=== PATIENT | male | born 1955 | race Caucasian/White ===

== ENCOUNTER 2025-01-03 07:54 | Emergency (ER) | payer MEDICARE, SELFPAY ==
[2025-01-03] VITALS (11 sets, daily range): BP systolic 139–191; BP diastolic 84–95; PULSE 58–72; RESP 13–23; TEMP 37; O2SAT 94–100; BMI 28.7
--- NOTE | 2025-01-03 07:52 | DI.RAD.S_ITS ---
PROCEDURE: XR CHEST 1V INDICATIONS: Chest Pain TECHNIQUE: One view of the chest was acquired. COMPARISON: None. FINDINGS: Surgical changes and devices: None. Lungs and pleura: Lungs are clear. No pleural effusions or pneumothorax. Mediastinum: Mediastinal contours appear normal. Heart size is normal. Bones and chest wall: No suspicious bony lesions. Overlying soft tissues appear unremarkable. IMPRESSION: No acute cardiopulmonary abnormality is seen. Approved by: Demian Perez M.D. on 01/03/2025 at 8:24
--- NOTE | 2025-01-03 07:52 | EKG_ITS ---
[address] [address] Test Date: 2025-01-03 Pat Name: Lili Gardiner Department: Room: Gender: Male [employer]: NORMA : 1955 Requested By: Order Number: [id number] Reading MD: Luis Berg Measurements Intervals [place] Rate: 69 P: 39 SD: 150 QRS: 0 QRSD: 84 T: 7 QT: 414 QTc: 443 Interpretive Statements Normal sinus rhythm Electronically Signed On 01-04-2025 17:29:34 PDT by Luis Berg
--- NOTE | 2025-01-03 07:56 | ED.CHESTPAIN ---
HPI - Chest Pain General Chief Complaint: Chest Pain Stated Complaint: Chest pain Time Seen by Provider: 01/03/25 07:55 History of Present Illness HPI narrative: 69-year-old male no significant past medical history presenting from the [place] via EMS for evaluation of chest pain, he states that it was a pressure started spontaneously a proximally 1 hour ago no longer having that pressure, he states there was no radiation states he was just sitting on the [place], he states that he did feel slightly clammy when this happened lasted for a few seconds. He denies any other symptoms such as headache visual disturbances shortness of breath fever chills nausea vomiting abdominal pain or any other GI/ symptoms time. Related Data Allergies Allergy/AdvReac Type Severity Reaction Status Date / Time No Known Drug Allergies Allergy Verified 01/03/25 07:56 Review of Systems Review of Systems Narrative: General: Denies fever, chills, weight loss HEENT: Denies headache, eye drainage, eye irritation, head trauma, sore throat, voice change Cardiovascular: Positive chest pain, denies palpitations, tachycardia Respiratory: Denies any shortness of breath, cough, wheeze, stridor GI/: Denies any abdominal pain, nausea, vomiting, diarrhea, bright red blood per rectum, melanotic stools, urinary frequency, urinary retention, dysuria, hematuria MSK: Denies any joint pain, muscle pains, swelling Skin: Denies any rashes, lesions, discoloration Neuro: Denies any headache, lightheadedness, dizziness, fainting, weakness Psych: Denies SI/HI Patient History Social History Smoking Status: Former smoker Exam Narrative Exam Narrative: General: Cooperative, well-developed, not in acute distress HEENT: Normocephalic, atraumatic, PERRLA, normal sclera, eyelids normal Neck: Active full range of motion, atraumatic Chest: Normal to inspection, negative crepitus, no overlying erythema ecchymosis Respiratory: Normal respiratory effort, not in acute respiratory distress, clear to auscultation bilaterally negative cough, wheeze, tachypnea, rhonchi, rales Cardiology: Regular rate rhythm negative gallop, murmur, rubs GI/: No tenderness to palpation, soft, non rigid, normal to inspection, exam deferred MSK: Full active range of motion in all 4 extremities, atraumatic, no tenderness to palpation of any bony prominences Skin: No rashes or lesions noted Neuro: Alert awake oriented x3, moves all 4 extremities spontaneously, cranial nerves intact, able to answer all questions appropriately follows commands appropriately Psych: Cooperative, negative suicidal or homicidal ideations Initial Vital Signs Initial Vital Signs: Vital Signs Temperature 98.6 F 01/03/25 07:52 Pulse Rate 72 01/03/25 07:52 Respiratory Rate 20 01/03/25 07:52 Blood Pressure 164/92 H 01/03/25 07:52 Pulse Oximetry 100 01/03/25 07:52 Oxygen Delivery Method Room Air 01/03/25 07:52 Course Orders Ordered: ED Orders 01/03/25 07:52 XR chest 1V Stat EKG-12 Lead Stat 01/03/25 07:53 Complete Blood Count AUTO DIFF Stat Comprehensive Metabolic Panel Stat Lipase Stat Magnesium Stat NT-proBNP (BNP-Adult 18+) Stat PTT Partial Thromboplastin [place] Stat Prothrombin Time INR Stat Troponin & CK Cardiac Panel Stat 01/03/25 10:00 Trop I [Troponin I] Stat Discontinued Medications Acetaminophen (Acetaminophen 325 Mg Tablet) 650 mg PO NOW ONE Stop: 01/03/25 08:00 Last Admin: 01/03/25 08:14 Dose: 650 mg Documented By: SHELTON Aspirin (Aspirin 81 Mg Chew Tab) 324 mg PO NOW ONE Stop: 01/03/25 07:51 Last Admin: 01/03/25 08:01 Dose: Not Given Documented By: CHELA Vital Signs Vital signs: Vital Signs - 8 hr 01/03/25 07:52 01/03/25 07:57 01/03/25 07:58 Temperature 98.6 F Pulse Rate 72 65 Respiratory Rate 20 17 Blood Pressure 164/92 H 158/87 H Pulse Oximetry 100 96 Oxygen Delivery Method Room Air 01/03/25 07:58 01/03/25 08:00 01/03/25 08:00 Temperature Pulse Rate 65 65 Respiratory Rate 13 14 Blood Pressure 150/88 H Pulse Oximetry 95 95 Oxygen Delivery Method 01/03/25 08:30 01/03/25 08:30 01/03/25 09:00 Temperature Pulse Rate 63 64 Respiratory Rate 14 23 Blood Pressure 146/84 H Pulse Oximetry 95 97 Oxygen Delivery Method 01/03/25 09:13 01/03/25 09:13 06/04/25 09:30 Temperature Pulse Rate 67 Respiratory Rate 17 Blood Pressure 191/93 H 162/95 H Pulse Oximetry 99 Oxygen Delivery Method Room Air 01/03/25 09:30 01/03/25 10:00 01/03/25 10:00 Temperature Pulse Rate 65 68 61 Respiratory Rate 20 16 19 Blood Pressure 145/90 H Pulse Oximetry 99 94 97 Oxygen Delivery Method Room Air MDM - Chest Pain Differential Diagnosis Differential diagnosis: Likely stable angina, unstable angina pectoris, atypical chest pain, st elevation myocardial infarction, costochondritis, chest pain and other (Electrolyte abnormality, pneumonia) Lab Data 01/03/25 07:53 01/03/25 07:53 Labs: Lab Results 01/03/25 01/03/25 Range/Units 07:53 10:00 WBC 6.5 (4.5-11.0) X10^3/uL RBC 4.87 (4.5-5.9) X10^6/uL Hgb 14.3 (13.5-17.5) g/dL Hct 42.8 (41-53) % MCV 88.0 (80-100) fL MCH 29.4 (26-34) PG MCHC 33.4 (30-36) % RDW 13.6 (11.6-14.8) % Plt Count 275 (150-400) X10^3/uL Neut % (Auto) 51.5 (50-75) % Lymph % (Auto) 36.6 (25-40) % [place] % (Auto) 8.8 (3-14) % Eos % (Auto) 2.3 (2-4) % Baso % (Auto) 0.8 (0-2) % Neut # (Auto) 3300 (2379-9045) /uL Lymph # (Auto) 2400 (0280-2769) /uL [place] # (Auto) 600 (0-900) /uL Eos # (Auto) 200 (0-450) /uL Baso # (Auto) 100 (0-100) /uL PT 10.3 (9.4-12.5) SECONDS INR 0.9 (0.9-1.3) APTT 37 H (25.1-36.5) SECONDS Sodium 138 (137-145) mmol/L Potassium 4.2 (3.4-5.1) mmol/L Chloride 106 (98-107) mmol/L Carbon Dioxide 24 (22-32) mmol/L BUN 16 (9-20) mg/dL Creatinine 0.70 (0.66-1.25) mg/dL Estimated GFR > 60 (>60) mL/min BUN/Creatinine Ratio 22.9 H (6-22) Glucose 116 H (70-99) mg/dL Calcium 10.2 (8.4-10.2) mg/dL Magnesium 2.0 (1.6-2.3) mg/dL Total Bilirubin 0.5 (0.2-1.3) mg/dL AST 38 (17-59) IU/L ALT 36 (<50) IU/L Alkaline Phosphatase 104 (38-126) U/L Total Creatine Kinase 260 H (55-170) U/L Troponin I < 0.012 < 0.012 (0.01-0.034) ng/mL NT-Pro-B Natriuret Pep < 20 (<125) pg/mL Total Protein 7.2 (6.3-8.2) g/dL Albumin 4.4 (3.5-5.0) g/dL Globulin 2.8 (1.7-4.1) g/dL Albumin/Globulin Ratio 1.6 (1.0-2.8) Lipase 116 (23-300) U/L Imaging Data Chest x-ray: Radiologist's Impression: [place] [address] XRay Report Signed Patient: Lili Gardiner MR#: [id number] : 1955 Acct:[id number] Age/Sex: 69 / M Date of Service: 01/03/25 Loc: ED Accession Number: [id number] Procedure: XR chest 1V Ordering Provider: Solitario Elias D.O. PROCEDURE: XR CHEST 1V INDICATIONS: Chest Pain TECHNIQUE: One view of the chest was acquired. COMPARISON: None. FINDINGS: Surgical changes and devices: None. Lungs and pleura: Lungs are clear. No pleural effusions or pneumothorax. Mediastinum: Mediastinal contours appear normal. Heart size is normal. Bones and chest wall: No suspicious bony lesions. Overlying soft tissues appear unremarkable. IMPRESSION: No acute cardiopulmonary abnormality is seen. ECG Data Interpretation: EKG interpreted ED physician sinuses 9 beats per minute QTC [address] changes no STEMI MDM Narrative Medical decision making narrative: 69-year-old male without any significant past medical history presenting from the [place] via EMS for evaluation of chest pressure, states it started proximally 1 hour ago, states that it lasted for several seconds states he fell from, me during this incident otherwise not complaining of any other symptoms. According to medics they did give him nitro prior to arrival, patient did have lab work EKG chest x-ray performed here in the emergency department. EKG nonischemic in nature. Lab work unremarkable, troponin negative x2, chest x-ray without any acute cardio pulmonary abnormality, heart score 3, patient was offered admission/transfer for cardiac workup, however he states he feels better, he states that he just wants to go home and go back to work. I did instruct him to follow up with Cardiology and primary care in outpatient setting he verbalized understanding of this and agrees to being discharged home with outpatient follow up Discharge Plan Departure Patient Disposition: Home Clinical Impression: Chest pain Instructions: DI for Chest Pain Activity Restrictions/Additional Instructions: Please follow up with Cardiology for stress test and echo as well as your primary care doctor Please read the discharge instructions sheet carefully and bring all papers to all doctor follow-up visits, as it may contain information that your doctor may want to see. Disease processes change and evolve, if your symptoms worsen or if you develop any new symptoms that are concerning to you please return for evaluation. Your evaluation today does not show any evidence of any life-threatening/serious illnesses requiring admission to the hospital or surgery. Please follow-up with your doctor for re-evaluation in approximately 1 day. Seek immediate medical attention for any worrisome symptoms. *If you do not have a primary care provider please contact the [facility] Resource line at [phone]. They will ask some questions about your medical history and help get you set up with a doctor in the community. Referrals: Marilu Cervantes PA-C [Primary Care Provider, Family Practice] Santhosh Mcneil MD [Physician, Cardiology] Referral Note: Chest pain follow up Stand Alone Forms: Patient Portal/API
[2025-01-03 08:04] LABS: Add Manual Diff / Slide Review NO; Basophils Absolute Auto 100 /uL (0-100); Basophils Percent Auto 0.8 % (0-2); Eosinophils Absolute Auto 200 /uL (0-450); Eosinophils Percent Auto 2.3 % (2-4); Hematocrit 42.8 % (41-53); Hemoglobin 14.3 g/dL (13.5-17.5); Lymphocytes Absolute Auto 2400 /uL (1100-4500); Lymphocytes Percent Auto 36.6 % (25-40); Mean Corpuscular HGB Conc 33.4 % (30-36); Mean Corpuscular Hemoglobin 29.4 PG (26-34); Monocytes Absolute Auto 600 /uL (0-900); Monocytes Percent Auto 8.8 % (3-14); Neutrophils Absolute Auto 3300 /uL (1500-7000); Neutrophils Percent Auto 51.5 % (50-75); Platelet Count 275 X10^3/uL (150-400); Red Blood Cell Count 4.87 X10^6/uL (4.5-5.9); Red Cell Distribution Width 13.6 % (11.6-14.8); White Blood Cell Count 6.5 X10^3/uL (4.5-11.0)
[2025-01-03 08:12] LABS: INR 0.9 (0.9-1.3); Prothrombin Time 10.3 SECONDS (9.4-12.5)
[2025-01-03 08:14] LABS: PTT Partial Thromboplastin Tim 37 SECONDS (25.1-36.5)
[2025-01-03] MEDS: ACETAMINOPHEN 325 MG TABLET 650 MG PO (08:14)
[2025-01-03 08:16] LABS: Alanine Aminotransferase 36 IU/L (<50); Albumin 4.4 g/dL (3.5-5.0); Albumin Globulin Ratio 1.6 (1.0-2.8); Alkaline Phosphatase 104 U/L (38-126); Aspartate Aminotransferase 38 IU/L (17-59); BUN Creatinine Ratio 22.9 (6-22); Bilirubin Total 0.5 mg/dL (0.2-1.3); Blood Urea Nitrogen 16 mg/dL (9-20); Calcium 10.2 mg/dL (8.4-10.2); Carbon Dioxide 24 mmol/L (22-32); Chloride 106 mmol/L (98-107); Creatine Kinase 260 U/L (55-170); Estimated Glomerular Filt Rate > 60 mL/min (>60); Globulin 2.8 g/dL (1.7-4.1); Glucose 116 mg/dL (70-99); HEMOLYSIS 16 (0-50); Lipase 116 U/L (23-300); Potassium 4.2 mmol/L (3.4-5.1); Sodium 138 mmol/L (137-145); Total Protein 7.2 g/dL (6.3-8.2)
[2025-01-03 08:28] LABS: NT-proBNP (BNP-Adult 18+) < 20 pg/mL (<125); Troponin I < 0.012 ng/mL (0.01-0.034)
[2025-01-03 10:27] LABS: Troponin I < 0.012 ng/mL (0.01-0.034)
== END 2025-01-03 10:42 | disposition home or self-care (01) ==
PROVIDERS: Emergency Provider Student in an Organized Health Care Education/Training Program; PCP Physician Assistant
DX: R07.9 Chest pain, unspecified (principal)
CPT/HCPCS: 36415; 71045; 80053; 82550; 83690; 83735; 83880; 84484; 85025; 85610; 85730; 93005; 99284

== ENCOUNTER → 2025-07-20 08:15 | Outpatient (CLI) | payer MEDICARE, SELFPAY ==
--- NOTE | 2025-07-20 | DI.MRI.S_ITS ---
PROCEDURE: MR LUMBAR SPINE WO CON INDICATIONS: Radiculopathy TECHNIQUE: Noncontrast sagittal T1 spin echo and T2 fast echo, sagittal STIR, and T2 fast spin echo through the lumbar spine. In cases with scoliosis, additional coronal T2 fast spin echo may be performed. COMPARISON: [facility], MR, MR LUMBAR SPINE WO CON, 10/20/2019, 8:56. FINDINGS: Image quality: Excellent Straightening of the lumbar spine. Mild retrolisthesis of L1 on L2, L2 on L3. Mild retrolisthesis of L4 on L5 and L5 on S1. Vertebral body height of the lumbar spine are well maintained. Multilevel fibrovascular endplate change, most pronounced and marked at L3-4 and L4-5. Multilevel disc desiccation and disc bulge. Conus terminates at the level of T12-L1, and is unremarkable. Right neural foraminal stenosis: Mild at T11-T12, T12-L1, L1-L2, moderate at L2-L3, L3-L4, L4-L5 and L5-S1. Left neural foraminal stenosis: Mild at T12-L1, L1-2, L2-3, moderate at L3-4, L4-5, and L5-S1. Axial images: T12-L1: Disc bulge. Mild bilateral facet arthropathy. Mild central canal stenosis. L1-2: Mild bilateral facet arthropathy with fluid within bilateral facet. Disc bulge, superimposed on central disc protrusion. Moderate central canal stenosis. L2-3: Disc bulge. Moderate bilateral facet arthropathy with fluid within the left facet. Mild to moderate central canal stenosis. L3-4: Disc bulge with right paracentral disc extrusion with inferior extension Severe bilateral facet arthropathy with ligamentum flava hypertrophy. Severe central canal stenosis. L4-5: Severe bilateral facet arthropathy. Likely right laminotomy. Disc bulge. Mild central canal stenosis. L5-S1: Mild bilateral facet arthropathy. Disc bulge. Left foraminal disc extrusion, resulting complete effacement of the left lateral recess. Visualized sacrum is intact. IMPRESSION: 1. Multilevel degenerative changes, most pronounced at L3-4, where there is severe central canal stenosis, grossly unchanged 2. Up to moderate neural foraminal stenosis described above. Dictated by: Nabila Moon M.D. on 07/20/2025 at 12:50 Approved by: Nabila Moon M.D. on 07/20/2025 at 13:04
--- NOTE | 2025-07-20 09:07 | DI.RAD.S_ITS ---
PROCEDURE: XR EYE FOREIGN BODY RT INDICATIONS: MRI SCREENING TECHNIQUE: A single view of the orbits was acquired. COMPARISON: None. FINDINGS: Soft tissues: No metallic foreign bodies are visualized around the orbits. Bones: Bony structures appear unremarkable. Visualized sinuses appear clear. IMPRESSION: No metallic foreign bodies. Dictated by: Kasi Junior M.D. on 07/20/2025 at 9:31 Approved by: Kasi Junior M.D. on 07/20/2025 at 9:32
== END ==
LOC: MRI 08:16
PROVIDERS: PCP Physician Assistant; Referring Provider Physician Assistant; Visit Provider Physician Assistant
DX: Z01.89 Encounter for other specified special examinations (principal); M47.26 Other spondylosis with radiculopathy, lumbar region; M48.061 Spinal stenosis, lumbar region without neurogenic claudication
CPT/HCPCS: 70030; 72148